=== PATIENT | male | born 1950 | race Caucasian/White ===

== ENCOUNTER 2017-08-10 17:04 | Emergency (ER) | payer MEDICARE ==
[2017-08-10 19:54] VITALS: BP 158/67
[2017-08-10] MEDS ORDERED: Ibuprofen TAB* 600 MG PO ONE (20:02)
--- NOTE | 2017-08-10 20:59 | RAD ---
INDICATION: Left distal radius pain and swelling after a fall COMPARISON: None. TECHNIQUE: 3 views left wrist. REPORT: There is a longitudinally oriented fracture line along the distal ulnar aspect left radius. Oriented more horizontally is a nondisplaced fracture line left radius exhibiting a small amount of impaction. IMPRESSION: Minimally displaced distal left radius fracture.
--- NOTE | 2017-08-10 21:16 | UC ---
Adal Saxena Julia, scribed for Michael Kennedy MD on 08/10/17 at 2101 . Upper Extremity HPI - HPI Summary HPI Summary: This patient is a 67 year old M [place] [facility] [place] a chief complaint of L wrist pain s/p fall while playing tennis at 16:00 today. Patient denies numbness. The patient rates the pain 5/10 in severity. Symptoms aggravated by movement. Pt reports taking four 200mg ibuprofens around 16:30. - History of Current Complaint Chief Complaint: UCUpperExtremity Stated Complaint: ARM INJURY Time Seen by Provider: 08/10/17 19:58 Hx Obtained From: Patient Onset/Duration: Lasting Hours Severity Initially: Moderate Severity Currently: Moderate Pain Intensity: 5 Pain Scale Used: 0-10 Numeric Location Of Pain: Is Discrete @ - L wrist - Allergies/Home Medications Allergies/Adverse Reactions: Allergies Allergy/AdvReac Type Severity Reaction Status Date / Time No Known Allergies Allergy Verified 08/10/17 19:54 Home Medications: Home Medications Ibuprofen TAB* [Advil TAB*] 800 mg PO ONCE PRN 08/10/17 [History Confirmed 08/10] PMH/Surg Hx/FS Hx/Imm Hx - Surgical History Surgical History: Yes Surgery Procedure, Year, and Place: TONSILLECTOMY - Family History Known Family History: Positive: Other - CVA - father - Social History Alcohol Use: Daily Alcohol Amount: 4 DRINKS/DAY Substance Use Type: None Smoking Status (MU): Current Every Day Smoker Type: Cigarettes Amount Used/How Often: 2 PACKS/WEEK Review of Systems Musculoskeletal: Myalgia - L wrist pain Neurological: Negative All Other Systems Reviewed And Are Negative: Yes Physical Exam Triage Information Reviewed: Yes Vital Signs: Initial Vital Signs Temp 98.3 F 08/10/17 19:50 Pulse 65 08/10/17 19:50 Resp 16 08/10/17 19:50 BP 158/67 08/10/17 19:50 Pulse Ox 95 08/10/17 19:50 Vital Signs Reviewed: Yes - Additional Comments General: well-appearing, no pain distress Skin: warm, color reflects adequate perfusion, dry Head: normal Eyes: EOMI, JOHN ENT: normal Neck: supple, nontender Respiratory: CTA, breath sounds present Cardiovascular: RRR Abdomen: soft, nontender Bowel: present Musculoskeletal: strength/ROM intact, L wrist swollen and tender to the ulnar aspect Neurological: normal, sensory/motor intact, A&O x3 Psychological: affect/mood appropriate Diagnostics - Radiology L Wrist XR Radiology Interpretation Completed By: Radiologist - Minimally displaced distal left radius fracture. ED Physician pao reviewed thsi report. Upper Extremity Course/Dx - Course Course Of Treatment: BP noted and advised to follow up with PCP. SUGAR TONG FIBERGLASS SPLINT PLACED BY MYSELF. NEUROVASCULAR EXAM NORMAL POST SPLINT. F/ U ORTHO. - Differential Dx/Diagnosis Provider Diagnoses: LEFT DISTAL RADIUS FRACTURE Discharge - Discharge Plan Condition: Stable Disposition: HOME Patient Education Materials: Wrist Fracture in Adults (ED) Referrals: [facility] [Outside] [facility] [Outside] Anil Angel MD [Medical Doctor] - Additional Instructions: Your blood pressure was elevated during todays visit; please follow up with your primary care provider within a week for further evaluation. FOLLOW UP WITH ORTHOPEDICS. GET RECHECKED FOR ANY WORSENING OF YOUR CONDITION OR QUESTIONS OR CONCERNS. The documentation as recorded by the Adal cid Julia accurately reflects the service I personally performed and the decisions made by me, Michael Kennedy MD.
== END 2017-08-10 21:10 | disposition home or self-care (01) ==
LOC: UCEAST 17:04
DX: S52.502A Unspecified fracture of the lower end of left radius, initial encounter for closed fracture (principal); W18.30XA Fall on same level, unspecified, initial encounter; Y93.73 Activity, racquet and hand sports; Y92.312 Tennis court as the place of occurrence of the external cause; F17.210 Nicotine dependence, cigarettes, uncomplicated
CPT/HCPCS: 99213; A9270-GY; G0463